=== PATIENT | female | born 1975 | race Hispanic/Latino ===

== ENCOUNTER 2017-12-10 16:04 | Outpatient (RCR) | payer OTHER ==
[~2017-12-10 16:04] MED LIST: GLIPIZIDE10 MG PO; LISINOPRIL5 MG PO
== END 2017-12-14 ==
LOC: PT 16:04
PROVIDERS: ATTEND Specialist
DX: M24.612 Ankylosis, left shoulder (principal); M77.8 Other enthesopathies, not elsewhere classified

== ENCOUNTER 2017-12-16 16:59 | Outpatient (RCR) | payer OTHER | END 2018-01-13 | LOC: PT 16:59 | PROVIDERS: ATTEND Specialist | DX: M25.512 Pain in left shoulder (principal); M25.612 Stiffness of left shoulder, not elsewhere classified; M24.612 Ankylosis, left shoulder; M75.92 Shoulder lesion, unspecified, left shoulder; M62.81 Muscle weakness (generalized) ==